=== PATIENT | male | born 1960 | race Hispanic/Latino ===

== ENCOUNTER 2017-10-16 17:02 | Emergency (ER) | payer BC ==
[2017-10-16] MEDS ORDERED: LIDOCAINE 1% W/EPI 1:100,000 MDV 50 ML VIAL ONE (17:50)
--- NOTE | 2017-10-16 18:19 | RAD REPORT ---
EXAM DESCRIPTION: RAD - Foot Left 3 View - 10/16/2017 6:12 pm CLINICAL HISTORY: laceration Pain COMPARISON: <Comparisons> FINDINGS: No fracture or dislocation is seen. No radiopaque foreign body is evident. Minimal posteri or calcaneal spur.
--- NOTE | 2017-10-16 18:36 | EDPHYS ---
Physician Documentation [facility] Name: Jenaro Lewis Jr Age: 57 yrs Sex: Male : 1960 Arrival Date: 10/16/2017 Time: 17:04 Bed 30 Private MD: Stoney Aguirre R ED Physician Osmar Morrison HPI: 10/16 17:21 This 57 yrs old Male presents to ER via Wheelchair with complaints of cp Laceration To Foot. 17:21 The patient has a laceration occurred at home, The injury was accidental, dropped box cp of glass dishes on foot. The laceration(s) is(are) located on the dorsal side of lateral mid left foot. Onset: The symptoms/episode began/occurred just prior to arrival. Historical: - Allergies: 17:07 No Known Allergies; lk1 - PMHx: 17:07 None; lk1 - PSHx: 17:07 right ankle; Cholecystectomy; left shoulder; lk1 - Immunization history:: Adult Immunizations up to date, Last tetanus immunization: up to date < 5 years ago. - Social history:: Smoking status: Patient uses tobacco products, denies chronic smoking, but will smoke occasionally. - Ebola Screening: : No symptoms or risks identified at this time. ROS: 17:25 Constitutional: Negative for body aches, chills, fever, poor PO intake. cp 17:25 Eyes: Negative for injury, pain, redness, and discharge. cp 17:25 Cardiovascular: Negative for chest pain, edema, palpitations. 17:25 Respiratory: Negative for cough, shortness of breath, wheezing. 17:25 Abdomen/GI: Negative for abdominal pain, nausea, vomiting, and diarrhea. 17:25 Skin: Positive for laceration(s), of the dorsum of left foot lateral aspect, Negative for cellulitis, rash. 17:25 Neuro: Negative for numbness. 17:25 All other systems are negative. Exam: 17:28 Constitutional: The patient appears in no acute distress, alert, awake, well developed, cp well nourished. 17:28 Head/Face: Normocephalic, atraumatic. cp 17:28 Eyes: Periorbital structures: appear normal, Conjunctiva: normal, no exudate, no injection, Lids and lashes: appear normal, bilaterally. 17:28 ENT: External ear(s): are unremarkable, Nose: is normal, Mouth: is normal. 17:28 Chest/axilla: Inspection: normal. 17:28 Cardiovascular: Rate: normal. 17:28 Respiratory: the patient does not display signs of respiratory distress, Respirations: normal, no use of accessory muscles, no retractions, no splinting, no tachypnea, labored breathing, is not present, intercostal retractions, are absent, shallow respirations, are not present. 17:28 Abdomen/GI: Exam negative for discomfort, distension, guarding, Inspection: abdomen appears normal. 17:28 Skin: injury, laceration(s), the wound is approximately 2 cm(s), of the dorsum of left foot lateral aspect, that can be described as clean, no foreign body, linear, with mild bleeding. 17:28 Neuro: Motor: full and intact of left foot, Sensation: no obvious gross deficits. Vital Signs: 17:07 BP 141 / 93; Pulse 80; Resp 14; Temp 97.0(TE); Pulse Ox 96% ; Weight 83.01 kg (R); lk1 Height 5 ft. 7 in. (170.18 cm) (R); Pain 6/10; 18:43 BP 134 / 78; Pulse 96; Resp 12; Pulse Ox 100% ; Pain 0/10; tt1 17:07 Body Mass Index 28.66 (83.01 kg, 170.18 cm) lk1 Laceration: 18:24 Wound Repair of 2cm ( 0.8in ) subcutaneous laceration to dorsum left foot lateral cp aspect. Linear shaped.. Distal neuro/vascular/tendon intact. Anesthesia: Wound infiltrated with 3 mls of 1% lidocaine w/ Epi. Wound prep: Moderate cleansing by me, Wound irrigation by me. Skin closed with 3 4-0 Prolene using simple sutures and sterile technique. Dressed with Bacitracin, pressure dressing, non-adherent dressing. Patient tolerated well. MDM: 17:09 Patient medically screened. cp 18:25 Data reviewed: vital signs, nurses notes, radiologic studies, plain films, and as a cp result, I will discharge patient. 18:25 Differential diagnosis: superficial laceration, tendon injury, vascular injury, cp retained foreign body. Test interpretation: by ED physician or midlevel provider: plain radiologic studies. 10/16 17:14 Order name: XRAY Foot LEFT 3 View; Complete Time: 18:24 cp 10/16 18:24 Interpretation: Reviewed report. 10/16 17:46 Order name: Prolene, Sutures: 4-0; Complete Time: 18:00 cp 10/16 17:46 Order name: Dressing - Wound; Complete Time: 18:00 cp 10/16 17:46 Order name: Gloves, Sterile; Complete Time: 18:00 cp 10/16 17:46 Order name: Setup Suture Tray; Complete Time: 18:00 cp 10/16 17:46 Order name: Wound Care: please clean and irrigate wound; Complete Time: 18:00 cp Administered Medications: 18:06 Drug: Lidocaine-Epinephrine -1%: (1:100,000) 5 ml Volume: 20 ml; Route: Infiltration; mb3 18:56 Follow up: Response: No adverse reaction mb3 Disposition: 10/17 10:11 Co-signature as Attending Physician, Osmar Morrison MD. Disposition: 10/16/17 18:36 Discharged to Home. Impression: Laceration without foreign body of foot - Left. - Condition is Stable. - Discharge Instructions: Laceration Care, Adult. - Medication Reconciliation Form, Thank You Letter, Antibiotic Education, Prescription Opioid Use, Work release form form. - Follow up: Stoney Aguirre MD; When: 7 - 10 days; Reason: Staple/Suture removal. - Problem is new. - Symptoms have improved. Signatures: Dispatcher [employer] EDMS Antolin Patten PA PA Teresa Luna RN RN lk1 Osmar Morrisno MD MD Jose Davidson RN RN mb3 Corrections: (The following items were deleted from the chart) 10/16 18:57 18:36 10/16/2017 18:36 Discharged to Home. Impression: Laceration without foreign body mb3 of foot - Left. Condition is Stable. Forms are Work release form, Medication Reconciliation Form, Thank You Letter, Antibiotic Education, Prescription Opioid Use. Follow up: Stoney Aguirre; When: 7 - 10 days; Reason: Staple/Suture removal. Problem is new. Symptoms have improved. cp
--- NOTE | 2017-10-16 18:36 | ER ---
Nurse's Notes [facility] Name: Jenaro Lewis Jr Age: 57 yrs Sex: Male : 1960 Arrival Date: 10/16/2017 Time: 17:04 Bed 30 Private MD: Stoney Aguirre R Diagnosis: Laceration without foreign body of foot-Left Presentation: 10/16 17:05 Presenting complaint: Significant other states: "He dropped some dishes on the top of lk1 his foot (left) and cut it really bad." (approximately one inch laceration, bleeding controlled). Transition of care: patient was not received from another setting of care. Complicating Factors: There are no complicating factors for this patient. Onset of symptoms was October 16, 2017 at 14:30. Risk Assessment: Do you want to hurt yourself or someone else? Patient reports no desire to harm self or others. Initial Sepsis Screen: Does the patient meet any 2 criteria? No. Patient's initial sepsis screen is negative. Does the patient have a suspected source of infection? No. Patient's initial sepsis screen is negative. Care prior to arrival: None. 17:05 Method Of Arrival: Wheelchair lk1 17:05 Acuity: ALIRIO 4 lk1 Historical: - Allergies: 17:07 No Known Allergies; lk1 - PMHx: 17:07 None; lk1 - PSHx: 17:07 right ankle; Cholecystectomy; left shoulder; lk1 - Immunization history:: Adult Immunizations up to date, Last tetanus immunization: up to date < 5 years ago. - Social history:: Smoking status: Patient uses tobacco products, denies chronic smoking, but will smoke occasionally. - Ebola Screening: : No symptoms or risks identified at this time. Screenin:22 Abuse screen: Denies threats or abuse. Nutritional screening: No deficits noted. mb3 Tuberculosis screening: No symptoms or risk factors identified. Fall Risk None identified. Assessment: 17:20 General: Appears uncomfortable, well groomed, Behavior is calm, cooperative, mb3 appropriate for age. Pain: Complains of pain in left foot. Neuro: No deficits noted. Cardiovascular: No deficits noted. Respiratory: No deficits noted. Musculoskeletal: No deficits noted. Reports pain in left foot. Injury Description: Laceration sustained to lateral aspect of left foot is clean, 0.5 to 2.5 cm long, not bleeding. Vital Signs: 17:07 BP 141 / 93; Pulse 80; Resp 14; Temp 97.0(TE); Pulse Ox 96% ; Weight 83.01 kg (R); lk1 Height 5 ft. 7 in. (170.18 cm) (R); Pain 6/10; 18:43 BP 134 / 78; Pulse 96; Resp 12; Pulse Ox 100% ; Pain 0/10; tt1 17:07 Body Mass Index 28.66 (83.01 kg, 170.18 cm) lk1 ED Course: 17:04 Patient arrived in ED. sb2 17:04 Stoney Aguirre MD is Private Physician. sb2 17:04 [facility]. cp 17:04 Osmar Morrison MD is Attending Physician. cp 17:06 Triage completed. lk1 17:09 Arm band placed on right wrist. lk1 17:13 Jose Davidson, SAURABH is Primary Nurse. mb3 17:22 Patient has correct armband on for positive identification. Call light in reach. mb3 17:38 X-ray completed. Portable x-ray completed in exam room. Patient tolerated procedure la2 well. 18:00 XRAY Foot LEFT 3 View Sent. mb3 18:13 XRAY Foot LEFT 3 View In Process Unspecified. EDMS 18:34 Stoney Aguirre MD is Referral Physician. cp 18:40 Dressings: Kerlix X 1; right foot 4X4s X 1; right foot shyam 4". tt1 18:57 No provider procedures requiring assistance completed. Patient did not have IV access mb3 during this emergency room visit. Administered Medications: 18:06 Drug: Lidocaine-Epinephrine -1%: (1:100,000) 5 ml Volume: 20 ml; Route: Infiltration; mb3 18:56 Follow up: Response: No adverse reaction mb3 Outcome: 18:36 Discharge ordered by MD. cp 18:56 Discharged to home ambulatory, with family. mb3 18:56 Condition: stable 18:56 Discharge instructions given to patient, Instructed on discharge instructions, follow up and referral plans. wound care, Demonstrated understanding of instructions, follow-up care, wound care. 18:57 Patient left the ED. mb3 Signatures: Dispatcher [employer] EDMS Antolin Patten PA PA Jaylyn Jose tt1 Teresa Luna, RN RN lk1 Christine Pfeiffer la2 Zenobia Romero sb2 Jose Davidson RN RN mb3
== END 2017-10-16 18:57 | disposition home or self-care (01) ==
LOC: ER 17:02
PROC: 0JQR0ZZ Repair Left Foot Subcutaneous Tissue and Fascia, Open Approach (ICD-10-PCS; principal; 2017-10-16)
DX: S91.312A Laceration without foreign body, left foot, initial encounter (principal); W22.8XXA Striking against or struck by other objects, initial encounter; Y93.89 Activity, other specified; Y92.009 Unspecified place in unspecified non-institutional (private) residence as the place of occurrence of the external cause; Z72.0 Tobacco use
CPT/HCPCS: 99283